=== PATIENT | male | born 1970 | race Caucasian/White ===

== ENCOUNTER 2017-05-17 18:50 | Emergency (ER) | payer BC | END 2017-05-17 20:31 | disposition home or self-care (01) | LOC: FTE 18:50 → E/R 20:31 | DX: R59.1 Generalized enlarged lymph nodes (principal); I10 Essential (primary) hypertension | CPT/HCPCS: 99284; Z7502 ==

== ENCOUNTER 2017-07-05 07:49 | Day surgery (SDC) | payer BC ==
[2017-07-05] MEDS ORDERED: SUCCINYLCHOLINE CHLORIDE 100 MG/5 ML SYG IV (11:12)
[2017-07-05] MEDS ORDERED: ROCURONIUM 50 MG INJ (11:12)
[2017-07-05] MEDS ORDERED: MEPERIDINE 100 MG INJ (11:12)
[2017-07-05] MEDS ORDERED: PROPOFOL 20 ML (11:12)
[2017-07-05] MEDS ORDERED: NEOSTIGMINE 3 MG/3 ML SYRINGE (11:12)
[2017-07-05] MEDS ORDERED: GLYCOPYRROLATE 0.4 MG INJ (11:12)
[2017-07-05] MEDS ORDERED: LIDOCAINE 100 MG SYRINGE (11:13)
[2017-07-05] MEDS ORDERED: LIDOCAINE 1%/EPI 30 ML INJ (11:47)
[2017-07-05] MEDS: LIDOCAINE 1%/EPI 30 ML INJ (11:50)
[2017-07-05] MEDS ORDERED: MEPERIDINE 25 MG INJ IV (12:30)
[2017-07-05] MEDS ORDERED: ONDANSETRON 4 MG INJ IV (12:30)
[2017-07-05] MEDS ORDERED: FENTAnyl 50 MCG/ML VIAL IV ×3 (12:30)
[2017-07-05] MEDS ORDERED: METOCLOPRAMIDE 10 MG INJ IV (12:30)
[2017-07-05] MEDS ORDERED: MIDAZOLAM 1 MG/ML 2 ML INJ IV (12:30)
[2017-07-05] MEDS ORDERED: HYDROmorphONE (0.2 MG/ML) 10ML SYG IV ×3 (12:30)
[2017-07-05] MEDS ORDERED: LABETALOL HCL 20MG INJ IV (12:30)
[2017-07-05] MEDS ORDERED: DIPHENHYDRAMINE 50 MG INJ IV (12:30)
[2017-07-05] MEDS ORDERED: hydrALAzine 20 MG INJ IV (12:30)
[2017-07-05] MEDS ORDERED: OXYCODONE/ACETAMINOPHEN (5/325) TAB PO ×2 (12:30)
[2017-07-05] MEDS ORDERED: HYDROCODONE/APAP (7.5/325) TAB PO (12:30)
[2017-07-05] MEDS ORDERED: EPHEDrine SULFATE 50 MG/5 ML SYG IV (12:30)
== END 2017-07-05 14:05 | disposition home or self-care (01) ==
LOC: SDS 07:49
DX: K11.5 Sialolithiasis (principal)
CPT/HCPCS: 42330